=== PATIENT | female | born 1970 | race Caucasian/White ===

== ENCOUNTER 2016-06-19 08:32 | Emergency (ER) | payer MEDICAID ==
[~2016-06-19] VITALS: Wt 69.0 kg
[2016-06-19] MEDS ORDERED: SOD CHLORIDE 0.9% 1,000 ML IV STA (09:23)
[2016-06-19] MEDS ORDERED: morphine 2 MG INJ IV STA (09:23)
[2016-06-19] MEDS ORDERED: ONDANSETRON 4 MG INJ IV STA ×2 (09:23→09:59)
[2016-06-19 09:41] LABS: BASOPHILS % 0.3 % (0.0-2.0); EOSINOPHILS # 0.1 10^3/ul (0.0-0.5); EOSINOPHILS % 1.3 % (0.0-7.0); HEMATOCRIT 44.5 % (37.0-47.0); HEMOGLOBIN 15.1 g/dl (12.0-16.0); LYMPHOCYTES # 1.2 10^3/ul (0.8-2.9); LYMPHOCYTES % 13.8 % (15.0-51.0); MEAN CORPUSCULAR HEMOGLOBIN 30.4 pg (29.0-33.0); MEAN CORPUSCULAR HGB CONC 33.9 g/dl (32.0-37.0); MEAN CORPUSCULAR VOLUME 89.8 fl (82.0-101.0); MEAN PLATELET VOLUME 7.5 fl (7.4-10.4); MONOCYTE # 0.9 10^3/ul (0.3-0.9); MONOCYTES % 10.3 % (0.0-11.0); NEUTROPHIL # 6.2 10^3/ul (1.6-7.5); NEUTROPHILS % 74.3 % (39.0-77.0); PLATELET COUNT 381 10^3/UL (140-440); RED BLOOD COUNT 4.95 10^6/ul (4.20-5.40); RED CELL DISTRIBUTION WIDTH 13.2 % (11.5-14.5); UNCORRECTED WBC 8.4 10^3/ul (4.8-10.8); WHITE BLOOD COUNT 8.4 10^3/ul (4.8-10.8)
[2016-06-19 09:45] LABS: ALBUMIN 4.1 g/dl (3.3-4.9)
[2016-06-19 09:46] LABS: POTASSIUM 4.2 mmol/L (3.5-5.1)
[2016-06-19 09:48] LABS: ALBUMIN/GLOBULIN RATIO 1.13; BILIRUBIN,INDIRECT 0.1 mg/dl (0-1.1); BILIRUBIN,TOTAL 0.1 mg/dl (0.2-1.3); CREATININE 0.65 mg/dl (0.44-1.00); TOTAL PROTEIN 7.7 g/dl (6.1-8.1)
[2016-06-19 09:49] LABS: CALCIUM 9.2 mg/dl (8.4-10.2)
[2016-06-19 09:50] LABS: CONDITION 1
[2016-06-19 09:57] LABS: ADD UMIC YES; URINE BILIRUBIN (Dip) NEGATIVE (NEGATIVE); URINE BLOOD (Dip) 1+ (NEGATIVE); URINE COLOR LT. YELLOW (YELLOW); URINE GLUCOSE (Dip) NEGATIVE (NEGATIVE); URINE KETONES (Dip) NEGATIVE (NEGATIVE); URINE LEUKOCYTE ESTERASE (Dip) 1+ (NEGATIVE); URINE NITRITE (Dip) NEGATIVE (NEGATIVE); URINE TOTAL PROTEIN (Dip) NEGATIVE (NEGATIVE); URINE UROBILINOGEN (Dip) 0.2 E.U./dL (0.1-1.0)
--- NOTE | 2016-06-19 10:24 | ERD ---
ER Documentation Chief Complaint Date/Time DATE: 06/19/16 TIME: 10:23 Chief Complaint vomiting and diarrhea for the past few days. mild abd pain HPI 45-year-old female otherwise healthy comes in with vomiting and diarrhea for the past 2-3 days with lower abdominal pain. She states that she had vomiting over the last 2 days previously that were nonbloody nonbilious and several episodes of loose stools. She has lower abdominal pain that is nonspecific, on and off and cramping like. She also describes burning with urination. No flank pain, hematuria or fevers or chills. ROS All systems reviewed and are negative except as per history of present illness. Medications Home Meds Active Scripts Ondansetron (Ondansetron Odt) 4 Mg Tab.rapdis, 4 MG PO Q6H Y for NAUSEA AND/OR VOMITING, #10 TAB Prov:LYRIC CANNON PA-C 06/19/16 Hydrocodone/Acetaminophen ([place] 5-325 Tablet) 1 Each Tablet, 1 TAB PO Q6H Y for PAIN, #10 TAB Prov:LYRIC CANNON PA-C 06/19/16 Cephalexin* (Keflex*) 500 Mg Capsule, 500 MG PO TID for 7 Days, CAP Prov:LYRIC CANNON PA-C 06/19/16 Allergies Allergies: Coded Allergies: No Known Allergy (Unverified , 06/19/16) PMhx/Soc Medical and Surgical Hx: pt denies Medical Hx, pt denies Surgical Hx Hx Alcohol Use: No Hx Substance Use: No Hx Tobacco Use: No Smoking Status: Never smoker Physical Exam Vitals Vital Signs Date Time Temp Pulse Resp B/P Pulse Ox O2 Delivery O2 Flow Rate FiO2 06/19/16 08:35 98.5 84 20 130/71 98 Physical Exam = General: Well-developed, well-nourished. The patient appears in no acute distress. HEENT: Head is normocephalic, atraumatic. No scleral icterus. Pupils are equal , round, and reactive. Oral mucous membranes are moist. No pharyngeal erythema. Neck: Supple. Nontender. Lungs: Clear to auscultation. Normal air movement. Heart: Regular rate and rhythm. S1 and S2 are normal. No murmurs, gallops, or rubs. Abdomen: Soft, nontender, nondistended. Bowel sounds are normoactive. Extremities: No clubbing or cyanosis. Normal pulses. Moving extremities x 4. No weakness. Neurologic: Alert and oriented 3. No focal deficits. Skin: Normal turgor. No rash or lesions. Result Diagram: 06/19/1692706/19/16927 Results 24 hrs Laboratory Tests Test 06/19/16 09:27 06/19/16 09:28 Urine Bacteria FEW Urine Bilirubin NEGATIVE Urine Clarity HAZY Urine Color LT. YELLOW Urine Glucose NEGATIVE% Urine Hemoglobin 1+ Urine Ketones NEGATIVE Urine Leukocyte Esterase 1+ Urine Microscopic RBC 0-2/HPF Urine Microscopic WBC 2-5/HPF Urine Nitrite NEGATIVE Urine Specific [place] <=1.005 Urine Squamous Epithelial Cells FEW Urine Total Protein NEGATIVE Urine Urobilinogen 0.2 E.U./dL Urine pH 6.0 Alanine Aminotransferase (ALT/SGPT) 39IU/L Albumin 4.1g/dl Albumin/Globulin Ratio 1.13 Alkaline Phosphatase 103IU/L Anion Gap 16 Aspartate Amino Transf (AST/SGOT) 28IU/L Basophils # 0.010^3/ul Basophils % 0.3% Blood Urea Nitrogen 9mg/dl Calcium Level 9.2mg/dl Carbon Dioxide Level 24mmol/L Chloride Level 102mmol/L Creatinine 0.65mg/dl Direct Bilirubin 0.00mg/dl Eosinophils # 0.110^3/ul Eosinophils % 1.3% Globulin 3.60g/dl Glucose Level 95mg/dl Hematocrit 44.5% Hemoglobin 15.1g/dl Indirect Bilirubin 0.1mg/dl Lipase 25U/L Lymphocytes # 1.210^3/ul Lymphocytes % 13.8% Mean Corpuscular Hemoglobin 30.4pg Mean Corpuscular Hemoglobin Concent 33.9g/dl Mean Corpuscular Volume 89.8fl Mean Platelet Volume 7.5fl Monocytes # 0.910^3/ul Monocytes % 10.3% Neutrophils # 6.210^3/ul Neutrophils % 74.3% Nucleated Red Blood Cells # 0.010^3/ul Nucleated Red Blood Cells % 0.0/100WBC Platelet Count 81133^3/UL Potassium Level 4.2mmol/L Red Blood Count 4.9510^6/ul Red Cell Distribution Width 13.2% Sodium Level 138mmol/L Total Bilirubin 0.1mg/dl Total Protein 7.7g/dl White Blood Count 8.410^3/ul Current Medications Medications (Trade) Dose Ordered Sig/Gena Route PRN Reason Start Time Stop Time Status Last Admin Dose Admin Sodium Chloride (NS) 1,000 ml @ 1,000 mls/hr Q1H STAT IV 06/19/16 09:23 06/19/16 10:22 06/19/16 09:29 Morphine Sulfate (morphine) 2 mg ONCE STAT IV 06/19/16 09:23 06/19/16 09:24 06/19/16 09:33 Ondansetron HCl (Zofran Inj) 4 mg ONCE STAT IV 06/19/16 09:23 06/19/16 09:24 06/19/16 09:33 Ondansetron HCl 4 mg 4 mg ONCE STAT IV 06/19/16 09:59 06/19/16 10:00 DC Ceftriaxone Sodium (Rocephin) 50 ml @ 100 mls/hr ONCE ONCE IVPB 06/19/16 10:30 06/19/16 10:59 06/19/16 10:31 Morphine Sulfate (morphine) 4 mg ONCE STAT IV 06/19/16 10:57 06/19/16 10:58 DC Procedures/MDM ED course: Patient was placed in a bed, IV line was established blood in urine were obtained and she was given morphine 2 mg IV, Zofran 4 mg IV, Rocephin 1 g IV. Fluid bolus of normal saline 1 L was administered. MDM: 45-year-old female comes with vomiting, diarrhea or abdominal pain for 2 days as well as burning with urination, also presents with UTI. Vomiting and diarrhea likely from a viral syndrome, she is found to have a urinary tract infection without evidence of pyelonephritis, doubt kidney stones. She was given fluids, as well as Zofran and morphine and feels much better at this time. No signs of any acute surgical abdominal process, patient will be discharged home with oral antibiotics, pain medication and Zofran. Departure Diagnosis: Primary Impression: Vomiting and diarrhea Condition: LYRIC Cotton PA-C Jun 19, 2016 10:24
[2016-06-19 10:26] LABS: BACTERIA,URINE FEW; SQUAMOUS EPITHELIAL CELL,UR FEW; URINE RBCS 0-2 /HPF (0)
[2016-06-19] MEDS ORDERED: CEFTRIAXONE 1 GM/50 ML (PMX) 50 ML IVPB ONE (10:30)
[2016-06-19] MEDS ORDERED: morphine 4 MG/ML VIAL IV STA (10:57)
[2016-06-19] MEDS ORDERED: CEPH-443 PO (11:01)
[2016-06-19] MEDS ORDERED: ONDA4TAB14 PO (11:01)
[2016-06-19] MEDS ORDERED: HYDR-906 PO (11:01)
== END 2016-06-19 11:09 | disposition home or self-care (01) ==
LOC: FTE 08:32
DX: R11.10 Vomiting, unspecified (principal); R19.7 Diarrhea, unspecified
CPT/HCPCS: 80053; 81001; 81003; 83690; 85025; J0696; J2270; J2405; J7030; 36415; 96374; 96375

== ENCOUNTER 2017-04-23 14:31 | Emergency (ER) | payer MEDICAID ==
[~2017-04-23] VITALS: Ht 162.6 cm; Wt 75.0 kg
[~2017-04-23 14:31] MED LIST: CEPH-443 PO; HYDR-906 PO; ONDA4TAB14 PO
[2017-04-23 14:34] VITALS: Ht 162.6 cm; Wt 75.0 kg
[2017-04-23] MEDS ORDERED: KETOROLAC 30 MG INJ IM STA (15:40)
[2017-04-23] MEDS ORDERED: BENZ100C70 PO (16:25)
[2017-04-23] MEDS ORDERED: IBUP-1542 PO (16:27)
[2017-04-23] MEDS ORDERED: FLUT9.9S NASAL (16:27)
[2017-04-23] MEDS ORDERED: D-ME473S2 PO (16:27)
[2017-04-23 16:34] VITALS: BP 157/88; PULSE 88; RESP 16; TEMP 98.3
--- NOTE | 2017-04-23 23:15 | ERD ---
ER Documentation Chief Complaint Chief Complaint c/o cough , st , body ache x 3 days HPI Patient is a 46-year-old female with a past medical history of fibromyalgia who presents ED for concerns of cough, sore throat, generalized body aches 3 days. Patient states that her cough is occasionally productive with clear sputum production. Patient reports generalized body aches. Patient also reports throat pain. Patient denies any trismus, drooling or hyperextension of her neck. Patient reports tactile fevers at home. Did not check her temperature. Patient reports taking NyQuil for her symptoms last night. Patient denies any nausea, vomiting, abdominal pain, diarrhea. She denies any neck pain or neck stiffness. Patient denies any chest pain, shortness of breath or loss consciousness. Patient does admit to receiving the flu vaccination this year. No recent travel. No sick contacts. ROS All systems reviewed and are negative except as per history of present illness. Medications Home Meds Active Scripts Ibuprofen* (Motrin*) 600 Mg Tab, 600 MG PO Q6, #30 TAB Prov:MONICA RAY PA-C 04/23/17 Fluticasone Propionate (Flonase Allergy Relief) 9.9 Ml [place].susp, 1 SPRAY NASAL BID, #1 BOTTLE TO EACH NOSTRIL Prov:MONICA RAY PA-C 04/23/17 Dextromethorphan Hb-Promethazine Hcl* (Promethazine DM* Syrup) 473 Ml Syrup, 5 ML PO Q6 Y for COUGH, #1 BOTTLE Prov:MONICA RAY PA-C 04/23/17 Benzonatate* (Tessalon Perle*) 100 Mg Capsule, 100 MG PO Q8H Y for COUGH, #20 CAP Prov:MONICA RAY PA-C 04/23/17 Ondansetron (Ondansetron Odt) 4 Mg Tab.rapdis, 4 MG PO Q6H Y for NAUSEA AND/OR VOMITING, #10 TAB Prov:LYRIC CANNON PA-C 06/19/16 Hydrocodone/Acetaminophen ([place] 5-325 Tablet) 1 Each Tablet, 1 TAB PO Q6H Y for PAIN, #10 TAB Prov:LYRIC CANNON PA-C 06/19/16 Cephalexin* (Keflex*) 500 Mg Capsule, 500 MG PO TID for 7 Days, CAP Prov:LYRIC CANNON PA-C 06/19/16 Allergies Allergies: Coded Allergies: No Known Allergy (Unverified , 04/23/17) PMhx/Soc Medical and Surgical Hx: pt denies Medical Hx, pt denies Surgical Hx History of Surgery: Yes (CAESARIAN SECTION; OVARIAN REMOVAL) Hx Miscellaneous Medical Probl: Yes (FIBROMYALGIA) Hx Alcohol Use: No Hx Substance Use: No Hx Tobacco Use: No Smoking Status: Never smoker Physical Exam Vitals Vital Signs Date Time Temp Pulse Resp B/P Pulse Ox O2 Delivery O2 Flow Rate FiO2 04/23/17 16:34 98.3 88 16 157/88 97 Room Air 04/23/17 14:34 99.8 93 18 167/90 98 Physical Exam GENERAL: Well-developed, well-nourished female. Appears in no acute distress. Speaking in full sentences. HEAD: Normocephalic, atraumatic. No deformities or ecchymosis. EYE: Pupils equal, round, and reactive to light. EOMs intact. No conjunctival erythema. No eye discharge. ENT: External ear without any masses or tenderness. Auditory canals clear bilaterally. TM visualized bilaterally, slightly erythematous, non-bulging. Nasal mucosa pink with no discharge. Oropharynx is slightly erythematous without any tonsillar erythema or exudates. No uvula deviation. No kissing tonsils. NECK: Supple. No meningismus. Normal ROM of the neck. LUNG: Clear to auscultation bilaterally. No rhonchi, wheezing, rales or coarse breath sounds. HEART: Regular rate and rhythm. No murmurs, rubs or gallops. EXTREMITES: Equal pulses bilaterally. No peripheral clubbing, cyanosis or edema. No unilateral leg swelling. NEUROLOGIC: Alert and oriented to person, place and time. Moving all four extremities. 5/5 strength in all extremities. Normal speech. Steady gait. SKIN: Normal color. Warm and dry. No rashes or lesions. Results 24 hrs Current Medications Medications (Trade) Dose Ordered Sig/Gena Route PRN Reason Start Time Stop Time Status Last Admin Dose Admin Ketorolac Tromethamine (Toradol) 30 mg ONCE STAT IM 04/23/17 15:40 04/23/17 15:42 DC 04/23/17 15:53 Procedures/MDM MEDICAL DECISION MAKING: This is a 46-year-old female with a history of fibromyalgia presents ED for concerns of a cough, sore throat, tactile fevers and generalized body aches 3 days. Vital signs were reviewed. Patient was afebrile. Patient was not hypoxic. ENT exam was normal. Lung exam was normal. Patient was given Toradol IM here in the ED. Given these findings, the patients presentation is most consistent with influenza-like illness.. I have a much lower clinical concern for bacterial infections including pneumonia, meningitis, sinusitis, otitis externa, acute otitis media, strep pharyngitis, epiglottitis or peritonsillar abscess. Low suspicion for sepsis. She was nontoxic, [id number] prior to discharge. PRESCRIPTIONS: Flonase, Tessalon Perles, promethazine cough syrup, ibuprofen DISCHARGE: At this time, patient is stable for discharge and outpatient management. Supportive therapies such as OTC throat lozenges, salt water gurgles, popsicles and jello discussed. I have instructed the patient to follow-up with his/her primary care physician in 1-2 days. I have instructed the patient to promptly return to the ER for any new or worsening symptoms including increased pain, swelling, fever, nausea, vomiting, weakness or difficulty breathing. The patient and/or family expressed understanding of and agreement with this plan. All questions were answered. Home care instructions were provided. Disclaimer: Inadvertent spelling and grammatical errors are likely due to EHR/ dictation software use and do not reflect on the overall quality of patient care. Also, please note that the electronic time recorded on this note does not necessarily reflect the actual time of the patient encounter. Departure Diagnosis: Primary Impression: Influenza-like symptoms Condition: Stable Patient Instructions: Influenza (Adult) Referrals: [facility] YOU HAVE RECEIVED A MEDICAL SCREENING EXAM AND THE RESULTS INDICATE THAT YOU DO NOT HAVE A CONDITION THAT REQUIRES URGENT TREATMENT IN THE EMERGENCY DEPARTMENT. FURTHER EVALUATION AND TREATMENT OF YOUR CONDITION CAN WAIT UNTIL YOU ARE SEEN IN YOUR DOCTORS OFFICE WITHIN THE NEXT 1-2 DAYS. IT IS YOUR RESPONSIBILITY TO MAKE AN APPOINTMENT FOR FOLOW-UP CARE. IF YOU HAVE A PRIMARY DOCTOR --you should call your primary doctor and schedule an appointment IF YOU DO NOT HAVE A PRIMARY DOCTOR YOU CAN CALL OUR PHYSICIAN REFERRAL HOTLINE AT IF YOU CAN NOT AFFORD TO SEE A PHYSICIAN YOU CAN CHOSE FROM THE FOLLOWING [facility] [address] [place] [facility] [address] [facility] [address] [facility] [address] [facility] [address] [facility]. [facility] [address] [facility] [facility] YOU HAVE RECEIVED A MEDICAL SCREENING EXAM AND THE RESULTS INDICATE THAT YOU DO NOT HAVE A CONDITION THAT REQUIRES URGENT TREATMENT IN THE EMERGENCY DEPARTMENT. FURTHER EVALUATION AND TREATMENT OF YOUR CONDITION CAN WAIT UNTIL YOU ARE SEEN IN YOUR DOCTORS OFFICE WITHIN THE NEXT 1-2 DAYS. IT IS YOUR RESPONSIBILITY TO MAKE AN APPOINTMENT FOR FOLOW-UP CARE. IF YOU HAVE A PRIMARY DOCTOR --you should call your primary doctor and schedule and appointment IF YOU DO NOT HAVE A PRIMARY DOCTOR YOU CAN CALL OUR PHYSICIAN REFERRAL HOTLINE AT . IF YOU CAN NOT AFFORD TO SEE A PHYSICIAN YOU CAN CHOSE FROM THE FOLLOWING [facility] INSTITUTIONS: [facility] [address] [place] [address] [facility] [address] [place] [address] [facility] [address] [place] [address] Additional Instructions: Call your primary care doctor TOMORROW for an appointment during the next 1-2 days.See the doctor sooner or return here if your condition worsens before your appointment time. MONICA RAY PA-C Apr 23, 2017 23:15
== END 2017-04-23 16:35 | disposition home or self-care (01) ==
LOC: FTE 14:31
DX: R05 Cough (principal); J02.9 Acute pharyngitis, unspecified
CPT/HCPCS: 96372; J1885; Z7502